=== PATIENT | female | born 1965 | race Caucasian/White ===

== ENCOUNTER → 2018-07-14 | Outpatient (CLI) | payer BC ==
--- NOTE | 2018-07-14 23:34 | EKG ---
[address] [address] ELECTROCARDIOGRAM REPORT Name: LINCOLN DE JESUS Room #: [facility]#: [id number] Admission: 07/14/18 Attend Phys: Andrews Oro MD, F Discharge: Date of : 61 Report #: [id number] THIS REPORT FOR: //name// [facility] Test Date: 2018-07-14 Test Time: 15:11:52 Pat Name: LINCOLN DE JESUS Department: Room: Gender: F Human Resources Talent Manager: ETTA : 1965 Requested By: Andrews Oro Order Number: [id number] MD: Mandeep Rose Measurements Intervals [place] Rate: 68 P: 47 MS: 172 QRS: 1 QRSD: 95 T: 34 QT: 404 QTc: 430 Interpretive Statements Sinus rhythm No previous ECG available for comparison Electronically Signed On 07-14-2018 23:33:46 [employer]PER[employer] by Mandeep Rose [email or web address] <ELECTRONICALLY SIGNED> By: Mandeep Rose MD 07/14/18 [id number] 1511 Mandeep Rose MD /MANOLO
== END ==
LOC: RAD 14:12
DX: Z01.818 Encounter for other preprocedural examination (principal)